=== PATIENT | male | born 1970 | race Caucasian/White ===

== ENCOUNTER 2020-12-03 15:54 | Outpatient (REF) | payer MEDICAID, SELFPAY ==
--- NOTE | ~2020-12-03 | XR_ITS ---
EXAMINATION: XR CHEST CLINICAL INFORMATION: Wheezing. Long smoking history. Rule out pulmonary nodule COMPARISON: None TECHNIQUE: 2 views of the chest were obtained. FINDINGS: Mild degenerative endplate changes of the thoracic spine. No significant abnormality is noted involving the heart, lungs, mediastinum, bony thorax or soft tissues. XR/XR chest 2V IMPRESSION: No acute abnormality identified. If the patient has a significant smoking history, he may benefit from lung cancer screening with low-dose chest CT.
== END 2020-12-03 15:55 | disposition home or self-care (01) ==
LOC: HO.HMGCX 15:54
PROVIDERS: PCP Internal Medicine; Visit Provider Internal Medicine
DX: R06.2 Wheezing (principal); F17.200 Nicotine dependence, unspecified, uncomplicated
CPT/HCPCS: 71046

== ENCOUNTER 2021-03-10 07:32 | Outpatient (REF) | payer MEDICAID, SELFPAY ==
--- NOTE | ~2021-03-10 | CT_ITS ---
EXAMINATION: CT CHEST SCREENING CLINICAL INFORMATION: Nicotine dependence. COMPARISON: None TECHNIQUE: Multidetector volumetric CT imaging of the chest was performed without contrast using low-dose technique. Additional 2D coronal and sagittal reformatted images and axial 3D maximum intensity projection (MIP) images are generated on the CT workstation. This CT examination was performed using dose optimization techniques as appropriate, variously including the following: *Automated exposure control *Adjustment of mA and/or kV according to patient size (this includes techniques or standardized protocols for targeted exams where dose is matched to indication/reason for exam; i.e. extremities or head) *Use of iterative reconstruction technique DLP: 69 mGy-cm FINDINGS: LUNGS: The lungs are well expanded and clear of acute pneumonic consolidation. There is a small, pleural-based 4 mm nodule in the right upper lobe (axial image 11/4), 4 mm nodule in the left upper lobe posterior segment (axial image 18/4), 4 mm nodule in the right lower lobe adjacent to the major fissure (axial image 43/4), 1 mm punctate calcification in the right lower lobe posterior basal segment (axial image 128/9). MEDIASTINUM: The central trachea and the bronchi are widely patent. The thyroid lobes are symmetrical and normal. Small shotty lymph nodes seen in the mediastinum with a short axis measurement of 6 mm and less. No pericardial effusion seen. PLEURA: There is no pleural effusion. No pleural mass or thickening. AXILLAE: There are small shotty axillary lymph nodes which appear benign. UPPER ABDOMEN: Visualized liver, spleen, pancreas and bilateral adrenal glands are unremarkable. OSSEOUS STRUCTURES: There is moderate ventral spondylosis in mid and lower dorsal spine. No lytic or sclerotic process seen. CT/CT lung screening IMPRESSION: Multiple small 4 mm pulmonary nodules and a 1 mm punctate calcification as described above. ASSESSMENT: Lung-RADS category 2: Benign RECOMMENDATION: Low-dose annual CT chest.
== END 2021-03-10 07:33 | disposition home or self-care (01) ==
LOC: HO.CT 07:32
PROVIDERS: Visit Provider Physician Assistant Medical
DX: Z12.2 Encounter for screening for malignant neoplasm of respiratory organs (principal); Z87.891 Personal history of nicotine dependence
CPT/HCPCS: 71271

== ENCOUNTER 2021-12-06 13:02 | Outpatient (REF) | payer MEDICAID, SELFPAY ==
[2021-12-06 13:55] LABS: MANUAL DIFF FLAG NO
[2021-12-06 14:03] LABS: Basophils Absolute Auto 0.1 X10*3/uL (0.0-0.2); Eosinophils Absolute Auto 0.9 X10*3/uL (0.0-0.4); Eosinophils Percent Auto 8.6 % (0-4); Hematocrit 46.7 % (42.0-52.0); Hemoglobin 15.3 g/dl (14.0-18.0); Imm Gran Abs Auto 0.08 X10*3/uL (0.00-0.03); Imm Gran Pct Auto 0.7 % (0.0-0.4); Lymphocytes Percent Auto 18.3 % (20-40); Mean Corpuscular HGB Conc 32.8 g/dl (31.0-36.0); Mean Corpuscular Hemoglobin 30.8 pg (27.0-33.0); Mean Corpuscular Volume 94.2 fL (80.0-98.0); Mean Platelet Volume 9.7 fL (9.4-12.4); Monocytes Absolute Auto 0.9 X10*3/uL (0.1-1.2); Monocytes Percent Auto 8.2 % (2-11); Neutrophils Absolute Auto 6.9 x10*3/uL (2.0-8.3); Neutrophils Percent Auto 63.2 % (45-73); Platelet Count 304 X10*3/uL (160-400); Red Blood Count 4.96 X10*6/uL (4.60-5.80); Red Cell Distribution Width 13.2 % (11.0-16.0); White Blood Count 10.9 X10*3/uL (4.8-10.8)
== END 2021-12-06 13:03 | disposition home or self-care (01) ==
LOC: HO.HMGCLDS 13:02
PROVIDERS: Visit Provider Internal Medicine
DX: D72.829 Elevated white blood cell count, unspecified (principal)
CPT/HCPCS: 36415; 85025

== ENCOUNTER 2022-05-18 12:01 | Day surgery (SDC) | payer MEDICAID, SELFPAY ==
[2022-05-12 14:43] VITALS: BMI 34.2
--- NOTE | 2022-05-17 11:41 | P.CONAN_ITS ---
Documented by User: Amber Levine NP 05/17/22 11:41 HPI - Anesthesia Eval Consult details Narrative: 51yo M for Colonoscopy [facility] Active Problems Active Problems: All Active Problems (Updated 01/15/21 @ 14:29 by Leonora Clemens PA-C) Personal history of nicotine dependence (Acute) Past Medical History Medical History (Updated 01/15/21 @ 14:29 by Leonora Clemens PA-C) Asthmatic bronchitis Personal history of nicotine dependence Surgical History Surgical History (Updated 05/12/22 @ 14:41 by Chery Melendrez RN) History of elbow surgery Social History Social History (Updated 01/15/21 @ 14:27 by Leonora Clemens PA-C) Patient Tobacco Use Status: Current everyday Tobacco user Tobacco use type: Cigarette Cigarette Packs Per Day: 1 Cigarettes Per Day: 20.0 Years Smoked: 35 (onset 15) Use of substances other than those prescribed or required for medical reasons: No Are you DNR?: No Advance Directives: No Advance Directives Information Provided: Yes Meds Allergies Allergy/AdvReac Type Severity Reaction Status Date / Time No Known Allergies Allergy Verified 05/12/22 14:45 [No Known Allergies*] Home Medications Medication Instructions Recorded Confirmed Last Taken Type albuterol sulfate 90 mcg/actuation 2 puff inhalation Q4-6H PRN 05/12/22 05/18/22 05/18/22 History aerosol inhaler (ProAir HFA) Wheezing Exam Exam Date and Time: May 17, 2022 1141 Height,Weight and Vital Signs: Height 5 ft 11 in Weight 111.13 kg Assessment and Plan Assessment Anesthesia Assessment: Chart Reviewed Documented by User: Ester Driscoll MD 05/18/22 13:11 [facility] Past Medical History Medical History (Updated 01/15/21 @ 14:29 by Leonora Clemens PA-C) Asthmatic bronchitis Personal history of nicotine dependence Family History Family history of problems with anesthesia: No Surgical History Surgical History (Updated 05/12/22 @ 14:41 by Chery Melendrez RN) History of elbow surgery History of Problems with Anesthesia: No Social History Social History (Updated 01/15/21 @ 14:27 by Leonora Clemens PA-C) Patient Tobacco Use Status: Current everyday Tobacco user Tobacco use type: Cigarette Cigarette Packs Per Day: 1 Cigarettes Per Day: 20.0 Years Smoked: 35 (onset 15) Use of substances other than those prescribed or required for medical reasons: No Are you DNR?: No Advance Directives: No Advance Directives Information Provided: Yes Meds Allergies Allergy/AdvReac Type Severity Reaction Status Date / Time No Known Allergies Allergy Verified 05/12/22 14:45 [No Known Allergies*] Home Medications Medication Instructions Recorded Confirmed Last Taken Type albuterol sulfate 90 mcg/actuation 2 puff inhalation Q4-6H PRN 05/12/22 05/18/22 05/18/22 History aerosol inhaler (ProAir HFA) Wheezing Exam Airway Mallampati Class: II TM Dist: >3cm Neck ROM: Full Heart: rrr Lungs: wheezes B/L ordered albuterol neb Assessment and Plan Assessment Anesthesia Assessment: Anesthesia Plan Discussed and Chart Reviewed Final Anesthetic Review Family History of Problems with Anesthesia: No History of Problems with Anesthesia: No NPO: Yes ASA Class: II Final Preanesthetic Review: No Changes in Pt Med Stat, Meds/Allgs Chart Reviewed and Consent Obtained/Reviewed Patient Risk: Intermediate Procedure Risk: Intermediate Anesthetic Plan Anesthetic Plan: MAC: Disposition: Standard PACU
[2022-05-18 12:44] VITALS: BMI 33.5
[2022-05-18 12:55] VITALS: BP 116/86; PULSE 69; RESP 16; TEMP 36.3; O2SAT 96
[2022-05-18] MEDS: Albuterol Sulfate (0.083%) 2.5 MG/3 ML VIAL.NEB INHALE (13:18)
[2022-05-18 13:20] VITALS: PULSE 66; RESP 16; O2SAT 96
[2022-05-18] MEDS: Lactated Ringers 1,000 ML 100 ML IVCONT (13:21)
--- NOTE | 2022-05-18 13:49 | MHC.SHP ---
Pre-Procedural Eval Section A Date of Service: 05/18/22 Section B Chief Complaint: screening Details of Present Illness: see H&P no changes Relevant Family History (Specify if Yes): No Relevant Social History: None Present Medications: None Medical History: No relevant PMH History of Previous Operations: No relevant previous surgery Allergies: Allergies Allergy/AdvReac Type Severity Reaction Status Date / Time No Known Allergies Allergy Verified 05/12/22 14:45 [No Known Allergies*] Review of Systems Sugical H&P ROS: Negative: Constitution, Cardiovascular, Respiratory, Neurological, Psychiatric, Hem-Onc, Allergic/Immunologic, Gastrointestinal, Genitourinary, Musculoskeletal, Integumentary, Endocrine and Eyes/Ears/Nose/Throat Exam Surgical H&P Exam: Normal: HEENT, Normal: Heart, Normal: Lungs, Normal: Extremities, Normal: Abdomen, Normal: Skin and Normal: Neurological Plan Diagnosis/Plan: Unchanged I have reviewed the history and physical and performed a pertinent physical examination on my patient. No changes have occurred unless specified.
--- NOTE | 2022-05-18 14:18 | PM.OP ---
Brief Operative Note Date of Service: 05/18/22 Pre-op diagnosis: screening Procedure: colonoscopy Surgeon: Sergey Mayes Anesthesia: MAC Was an Security Consultant used for this Procedure?: No Estimated blood loss (mL): 2 Pathology: other Condition: stable Disposition: PACU
[2022-05-18 14:22] VITALS: BP 96/62; PULSE 66; RESP 16; TEMP 36.2; O2SAT 92
[2022-05-18 14:45] VITALS: BP 116/83; PULSE 67; RESP 16; TEMP 36.8; O2SAT 95
--- NOTE | 2022-05-19 02:19 | OP_ITS ---
SURGEON: Sergey Mayes MD INDICATIONS: Colon cancer screening. PREOPERATIVE DIAGNOSIS: POSTOPERATIVE DIAGNOSIS: PROCEDURE PERFORMED: Colonoscopy to the terminal ileum with snare polypectomy. ESTIMATED BLOOD LOSS: COMPLICATIONS: ANESTHESIA: Medications; monitored anesthesia care. ASSISTANTS: SPECIMENS: DESCRIPTION OF PROCEDURE: History and physical performed. The risks and benefits of the procedure were explained to the patient. Informed consent was obtained. The patient was placed in the left lateral decubitus position. A digital rectal exam was performed and was found to be normal. The Olympus pediatric videocolonoscope was introduced into the rectum and advanced to the cecum without difficulty. The cecum was identified by transillumination, palpation, and identification of the ileocecal valve. Examination was performed. The scope was removed. He tolerated the procedure well and was taken to recovery room in stable condition. FINDINGS: The terminal ileum was examined and appeared normal. The visualized colonic mucosa was normal. In the right colon at about 90 cm from the anal verge, there was a less than 10 mm polyp, which was removed with a cold snare and recovered via suction. No other polyps were identified. There was some stool coating mucosa in the right colon limiting the examination. This was washed and suctioned. There was [id number] diverticulosis involving the sigmoid. Retroflexed examination showed small internal hemorrhoids. IMPRESSION: Colon polyp. RECOMMENDATION: Follow up with the biopsy results. MD JINA Bianchi/MAURA / [id number]
== END 2022-05-18 15:02 | disposition home or self-care (01) ==
PROVIDERS: PCP Internal Medicine; Visit Provider Internal Medicine Gastroenterology
PROC: 0DJD8ZZ Inspection of Lower Intestinal Tract, Via Natural or Artificial Opening Endoscopic (ICD-10-PCS; CPT 45378; principal; 2022-05-18 13:40)
DX: Z12.11 Encounter for screening for malignant neoplasm of colon (principal); D12.3 Benign neoplasm of transverse colon; K57.30 Diverticulosis of large intestine without perforation or abscess without bleeding; K64.8 Other hemorrhoids; J45.909 Unspecified asthma, uncomplicated; Z80.42 Family history of malignant neoplasm of prostate; F17.210 Nicotine dependence, cigarettes, uncomplicated; Z79.899 Other long term (current) drug therapy
CPT/HCPCS: 45385; 88305; 94640

== ENCOUNTER 2024-11-01 13:10 | Outpatient (REF) | payer OTHER, SELFPAY ==
--- NOTE | ~2024-11-01 | XR_ITS ---
EXAMINATION: XR CHEST 2 VIEWS HISTORY: COUGH COMPARISON: Comparison is made with the prior examination dated 12/03/2020. FINDINGS: PA and lateral views of the chest are submitted. The lungs are expanded and clear. There is no pleural effusion, pneumothorax, or pulmonary vascular congestion. The heart is normal in size. There is degenerative disc disease of the spine. XR/XR chest 2V IMPRESSION: No acute cardiopulmonary abnormality. Electronically signed by: Armen Joshua MD 11/01/2024 02:43 PM EST
--- OUTSIDE RECORDS SUMMARY | 2024-11-01 13:28 | XMS_ITS | Patient Health Record ---
Author Organization [facility] Address [address] [place] [address] Care Team Providers Care Supervisor Liquefaction Name Role Phone Darci MALONEY, [place] Primary Care Provider Sergey Hudson Jr Unavailable ALLERGIES No Known Allergies REASON FOR REFERRAL No Information MEDICATIONS Medication SIG (Take, Route, Frequency, Duration) Notes Start Date End Date Status ProAir HFA as needed Active MiraLax (colon prep) 17 GM/SCOOP mixed with Gatorade or Crystal Light Orally begin at 5:00 p.m. the day before the procedure for 1 day 04/13/2022 Active IMMUNIZATIONS Vaccine Route Administration Date Status Comme nts Influenza Unknown 11/01/2019 Refused Influenza Unknown 04/13/2022 Refused SOCIAL HISTORY Tobacco Use: Social History Observation Description Date Details (start date - stop date) Current Smoker NA - NA Sex Assigned At : Social History Observation Description Sex Assigned At Unknown Tobacco Use/Smoking Question Answer Notes Patient is a current smoker How often do you smoke cigarettes? every day How many cigarettes a day do you smoke? 11-20 Alcohol Screen Question Answer Notes Did you have a drink containing alcohol in the p ast year? No Points 0 Interpretation Negative PROBLEMS Problem Type ICD Code Onset Dates Problem Status W/U Status Risk SNOMED Code Notes Problem Colon cancer screening (Z12.11) Active confirmed [id number] PLAN OF TREATMENT Future Test Test Name Order Date COLONOSCOPY 11/01/2019 COLONOSCOPY 04/13/2022 Insurance Providers Payer Name Payer Address Payer Phone Subscriber Number Group Number Insured Name Patient Relationship to Insured Coverage Start Date Coverage End Date [facility] [address] [place] [phone] [id number] MARQUIS SUERO Self - patient is the insured MEDICAL (GENERAL) HISTORY Medical History History ICD Code asthmatic bronchitis Surgical History Surgery Date(Month/Year) broken arm left two screw in elbow age [age]
== END 2024-11-01 13:11 | disposition home or self-care (01) ==
LOC: HO.HMGCX 13:10
PROVIDERS: PCP Internal Medicine; Visit Provider Internal Medicine
DX: R05.9 Cough, unspecified (principal)
CPT/HCPCS: 71046

== ENCOUNTER → 2024-11-01 13:18 | Outpatient (BNV) | payer OTHER, SELFPAY | PROVIDERS: PCP Internal Medicine; Visit Provider Radiology Diagnostic Radiology | DX: R05.9 Cough, unspecified (principal) | CPT/HCPCS: 71046 ==

== ENCOUNTER 2025-06-06 14:27 | Outpatient (AMB) | payer OTHER, SELFPAY ==
--- NOTE | 2025-06-06 14:23 | A.OFFPC_ITS ---
Vital Signs 06/06/25 14:31 Height 5 ft 10.12 in Weight 261 lb BMI 37.3 Respiration 16 Pulse 67 Pulse Source Pulse Oximeter Temp 97.8 F Temp Source Temporal Artery Scan Pulse Oximetry (%) 98 Oxygen Delivery Method Room Air Intake Visit Reasons: establish care Accompanied by: Self / Same As Patient Allergies No Known Allergies (No Known Allergies*) Allergy (Verified 06/06/25 15:01) Medication List - Last Reconciled 06/06/25 by Belen Velasco PA-C albuterol sulfate 90 mcg/actuation (ProAir HFA) 2 puffs inhalation Q4-6H PRN budesonide-formoterol 80-4.5 mcg/actuation (Symbicort) inhalation omeprazole 20 mg PO DAILY tadalafil (Cialis) 5 mg PO DAILY triamcinolone acetonide 0.1% appl topical BID Tobacco use date assessed: 06/06/25 Dental Screening Dental Screen Date: 06/06/25 Did you have a dental visit in the last 12 months?: No HPI establish care HPI Details The patient is a 54-year-old male presenting for a new patient appointment and management of chronic conditions. The patient has a history of asthmatic bronchitis, for which he uses albuterol and Symbicort. He was a smoker for approximately 30 years, smoking a pack a day, but quit two years ago. He has undergone lung cancer screening, which was normal, and is advised to continue with periodic screenings. The patient reports erectile dysfunction and is currently on sildenafil, but is considering switching to tadalafil for daily use. He has no known cardiovascular issues, and his blood pressure was recorded at 135/71 mmHg during the visit. 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 He has gained 45 pounds since quitting smoking and does not engage in regular physical activity. The numbness is intermittent and sometimes accompanied by tightness, but he denies any back pain or swelling in the legs. He has a history of gastroesophageal reflux disease (GERD) and is on omeprazole 20 mg daily. 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 - Substance Use: Former smoker, quit two years ago after smoking a pack a day for 30 years. - Exercise: Does not engage in regular p hysical activity. - Weight Management: Gained 45 pounds si nce quitting smoking. [facility] Medical History (Updated 06/06/25 @ 16:27 by Belen Velasco PA-C) GERD (gastroesophageal reflux disease) Hypertension Paresthesias Pulmonary nodule Erectile dysfunction Personal history of nicotine dependence Asthmatic bronchitis Surgical History History of elbow surgery Family History Mother Breast CA Father Prostate CA Social History Housing: House Patient Tobacco Use Status: Former Tobacco user Tobacco use type: Cigarette Cigarette Packs Per Day: 1 Cigarettes Per Day: 20.0 Years Smoked: 35 (onset 15) service: No Current occupational status: employed Cognitive needs: No Hearing needs: No Vision needs: No Questionnaire PHQ-9 Over the last 2 weeks, how often have you been bothered by any of the following problems? 1. Little interest or pleasure in doing things: not at all 2. Feeling down, depressed, or hopeless: not at all 3. Trouble falling or staying asleep, or sleeping too much: not at all 4. Feeling tired or having little energy: not at all 5. Poor appetite or overeating: not at all 6. Feeling bad about yourself - or that you are a failure or have let yourself or your family down: not at all 7. Trouble concentrating on things, such as reading the newspaper or watching television: not at all 8. Moving or speaking so slowly that other people could have noticed. Or the opposite - being so fidgety or restless that you have been moving around a lot more than usual: not at all 9. Thoughts that you would be better off or of hurting yourself in some way: not at all Total score: 0 Depression Screening Interpretation: Negative Depression Screening Done: Yes 57441 - PHQ-9 Billing: Yes Source: Developed by Drs. Armen Peguero, Mirella Leonard, Bryant Del Castillo and colleagues, with an educational faith from [employer]. Thrive Questionnaire Date Thrive assessed: 06/06/25 I am a: Patient What is your living situation today?: I have a steady place to live Within the past 12 months, did the food you bought not last and you didn't have the money to get more?: Never true Within the past 12 months, did you worry whether your food would run out before you got money to buy more?: Never true Do you have trouble paying for medicines?: No Do you have trouble getting transportation to medical appointments?: No Do you have trouble paying your heating and electricity bill?: No Do you have trouble taking care of your child, family member or friend?: No Do you have trouble with day-to-day activities such as bathing, preparing meals, shopping, managing finances, etc.?: No Are you currently unemployed and looking for a job?: No Are you interested in more education?: No THRIVE Score: 0 AUDIT C Alcohol Use Questionnaire (AUDIT-C) 1. How often do you have a drink containing alcohol?: Never Total Score: 0 Score Reviewed/Action Taken: No AURE-7 AMB Questionnaire AURE-7 Date AURE - 7 assessed: 06/06/25 Feeling nervous, anxious, or on edge: 0 = Not at all Not being able to stop or control worryin = Not at all Worrying too much about different things: 0 = Not at all Trouble relaxin = Not at all Being so restless that it is hard to sit still: 0 = Not at all Becoming easily annoyed or irritable: 0 = Not at all Feeling afraid as if something awful might happen: 0 = Not at all Total AURE-7 score (0-4 normal; 5-9 mild; 10-14 moderate; 15-21 severe): 0 Source: Developed by Drs. Armen Peguero, Mierlla Leonard, Bryant Del Castillo and colleagues, with an educational faith from [employer]. AURE-7 Assessment Billing AURE-7 Assessment Tool: AURE-7 Assessment 02405 Review of Systems Const Details: - Respiratory: Reports history of asthmatic bronchitis. Denies current dyspnea or wheezing. - Cardiovascular: Denies chest pain or palpitations. - Neurological: Reports intermittent numbness in upper legs. Denies headaches or dizziness. - Gastrointestinal: Reports gastroesophageal reflux disease. Denies abdominal pain or changes in bowel habits. All systems reviewed & are unremarkable except as noted in HPI and below Physical exam (Primary Care) Vital Signs: Last Vital Signs Temp 97.8 F 06/06/25 14:31 Pulse 67 06/06/25 14:31 Resp 16 06/06/25 14:31 Pulse Ox 98 06/06/25 14:31 Oxygen Delivery Method Room Air 06/06/25 14:31 Care Plan Goal for BP management: <140/90 at Goal BMI result Body Mass Index 37.3 BMI Assessment/Plan discussion: High BMI High, discussed plan: lifestyle, weight reduction, dietary, physical activity, alcohol moderation and other Tobacco/Smoking Status: Tobacco use Status Tobacco use date assessed 06/06/25 06/06/25 14:41 Patient Tobacco Use Status Former Tobacco user 06/06/25 14:41 Tobacco use type Cigarette 06/06/25 14:25 PHQ-9: PHQ-9 Score PHQ-9: Total score 0 06/06/25 15:45 Depression Screening Interpretation: Negative Thrive Assessment: Date of Thrive Assessment Date Thrive assessed 06/06/25 06/06/25 14:41 Const Other: Appearance: Alert. Oriented X3. No acute distress. Head: Normal external exam. Normocephalic. Atraumatic. Eyes: Pupils are equal, round, and reactive to light. Extraocular movements intact. Conjunctiva and sclera normal. Eyelids normal. Ears: External auditory canal normal. Tympanic membranes normal. Throat: Pharynx normal. Uvula midline. Moist mucous membranes. Neck: Normal inspection. Neck supple. Full range of motion. Cardiovascular: Normal heart rate and rhythm. Heart sound normal. No murmurs noted. Pulses normal throughout. Blood pressure was 135/71. Pulse was 60. Respiratory: No respiratory distress. Painless inspiration. Breath sounds normal. No wheezes/rales/rhonchi noted. Chest nontender. No accessory muscle usage noted or decreased air movement noted. Back: Full range of motion noted. Skin: Skin warm and dry. Normal skin color. Normal skin turgor. No rashes/lesions/lacerations noted. Extremities: No lower extremity edema. Extremities exhibit normal range of motion. Extremities nontender. Reports occasional numbness in upper legs, especially from knees up, possibly related to prolonged sitting. Neuro: Oriented X 3. No motor deficit. No sensory deficit. Reflexes normal. Reports occasional numbness and tightness in upper legs. Results AMB Hemoglobin A1c AMB Hemoglobin A1c 6.0 % Last Edit by BEL Szymanski on 06/06/25 15:28 Results Reviewed Results Reviewed: Laboratory Last Values Hgb A1c (Clinic) 6.0 % (4.0-6.0) 06/06/25 15:26 - Imaging: Lung cancer screening was normal. Coding Level of Care Code New Pt Level 4 (29703) Complex EM visit Add On G2211 Diagnoses Asthmatic bronchitis J45.909 Pulmonary nodule R91.1 Erectile dysfunction N52.9 Paresthesias R20.2 Hypertension I10 GERD (gastroesophageal reflux disease) K21.9 Additional Codes AURE-7 Assessment Billing - AURE-7 Assessment Tool: AURE-7 Assessment 45405 ([id number]) PHQ-9 - 75244 - PHQ-9 Billing: Yes ([id number]) Time Spent (min) 50 Assessment & Plan Assessment & Plan (1) Asthmatic bronchitis: Comment: (uses albuterol inhaler daily) Code(s): J45.909 - Unspecified asthma, uncomplicated Category: Medical Plan: The patient will continue using albuterol and Symbicort for management of asthmatic bronchitis. Smoking cessation has been achieved, and periodic lung cancer screenings are advised. (2) Pulmonary nodule: Code(s): R91.1 - Solitary pulmonary nodule Category: Medical Plan: The patient has four pulmonary nodules and will be referred for further evaluation and management. (3) Erectile dysfunction: Code(s): N52.9 - Male erectile dysfunction, unspecified Category: Medical Plan: The patient is considering switching from sildenafil to tadalafil for daily use, with a prescription for 5 mg daily. (4) Paresthesias: Code(s): R20.2 - Paresthesia of skin Category: Medical Plan: The patient reports numbness in the upper legs, likely due to prolonged sitting. Blood work including magnesium, B12, and folate levels will be conducted to rule out deficiencies. A referral to neurology will be considered if symptoms persist. (5) Hypertension: Code(s): I10 - Essential (primary) hypertension Category: Medical Plan: The patient's blood pressure was recorded at 135/71 mmHg, and no immediate changes to management were discussed. (6) GERD (gastroesophageal reflux disease): Code(s): K21.9 - Gastro-esophageal reflux disease without esophagitis Category: Medical Plan: The patient is currently managing GERD with omeprazole 20 mg daily. Plan Plan Patient was informed and verbally consented to the use of an ambient scribe for clinic note documentation during this visit. 1. Asthmatic Bronchitis The patient will continue using albuterol and Symbicort for management of asthmatic bronchitis. Smoking cessation has been achieved, and periodic lung cancer screenings are advised. 2. Pulmonary Nodules The patient has four pulmonary nodules and will be referred for further e valuation and management. 3. Erectile Dysfunction The patient is considering switching from sildenafil to tadalafil for daily use, with a prescription for 5 mg daily. 4. Numbness In Upper Legs The patient reports numbness in the upper legs, likely due to prolonged sitting. Blood work including magnesium, B12, and folate levels will be conducted to rule out deficiencies. A referral to neurology will be considered if symptoms persist. 5. Hypertension The patient's blood pressure was recorded at 135/71 mmHg, and no immediate changes to management were discussed. 6. Gastroesophageal Reflux Disease (Gerd) The patient is currently managing GERD with omeprazole 20 mg daily. During the visit, we discussed the management of asthmatic bronchitis with continued use of albuterol and Symbicort, and the importance of periodic lung cancer screenings due to the patient's smoking history. We also reviewed the patient's erectile dysfunction treatment options, including a switch to tadalafil for daily use, and addressed the numbness in his upper legs, recommending blood work and a potential neurology referral if symptoms persist. Orders: Orders C Reactive Protein Today Z00.00 - Encounter for general adult medical examination without abnormal findings Comprehensive [place]. Panel Fast Today Z00.00 - Encounter for general adult medical examination without abnormal findings Magnesium Today Z00.00 - Encounter for general adult medical examination without abnormal findings Liver Panel Today Z00.00 - Encounter for general adult medical examination without abnormal findings Vitamin B12 and Folate Today Z00.00 - Encounter for general adult medical examination without abnormal findings Vitamin D 25-OH Total Today Z00.00 - Encounter for general adult medical examination without abnormal findings UA CC w/rflx Micro + Cult Today Z00.00 - Encounter for general adult medical examination without abnormal findings Testosterone, Free/Total Today Z00.00 - Encounter for general adult medical examination without abnormal findings Complete Blood Count Auto Diff Today Z00.00 - Encounter for general adult medical examination without abnormal findings TSH reflex Free T4 Today Z00.00 - Encounter for general adult medical examination without abnormal findings PSA,Total (Free>4and<10) Today Z00.00 - Encounter for general adult medical examination without abnormal findings DHEA Sulfate Today Z00.00 - Encounter for general adult medical examination without abnormal findings Dihydrotestosterone Today Z00.00 - Encounter for general adult medical examination without abnormal findings AMB Hemoglobin A1c Today Z13.9 - Encounter for screening, unspecified Referrals Lung Cancer Screening Referral Z87.891 - Personal history of nicotine dependence Medications: New tadalafil (Cialis) 5 mg PO DAILY 30 tabs 0RF erectile dysfunction N52.9 - Male erectile dysfunction, unspecified triamcinolone acetonide 0.1% 1 appl topical BID 454 grams 3RF Patient Instructions: - Continue using albuterol and Symbicort as prescribed for asthmatic bronchitis. - Schedule periodic lung cancer screenings as advised. - Consider switching to tadalafil for erectile dysfunction management, as discussed. - Monitor for any changes in numbness or tightness in the legs and report if symptoms worsen. - Follow up with blood work as ordered to check for deficiencies. - Maintain a healthy diet and consider increasing physical activity to manage weight gain.
[2025-06-06 14:31] VITALS: PULSE 67; RESP 16; TEMP 36.6; O2SAT 98; BMI 37.3
== END 2025-06-06 15:27 | disposition home or self-care (01) ==
LOC: HO.HMCSH 14:27
PROVIDERS: PCP Internal Medicine; Visit Provider Physician Assistant Medical
DX: J45.909 Unspecified asthma, uncomplicated (principal); R91.1 Solitary pulmonary nodule; N52.9 Male erectile dysfunction, unspecified; R20.2 Paresthesia of skin; I10 Essential (primary) hypertension; K21.9 Gastro-esophageal reflux disease without esophagitis; Z13.9 Encounter for screening, unspecified

== ENCOUNTER → 2025-06-06 14:27 | Outpatient (BNVA) | payer OTHER, SELFPAY | PROVIDERS: PCP Internal Medicine; Visit Provider Physician Assistant Medical | DX: I10 Essential (primary) hypertension (principal); J45.909 Unspecified asthma, uncomplicated; N52.9 Male erectile dysfunction, unspecified; R20.0 Anesthesia of skin; K21.9 Gastro-esophageal reflux disease without esophagitis; R91.1 Solitary pulmonary nodule; R20.2 Paresthesia of skin; Z87.891 Personal history of nicotine dependence; Z79.899 Other long term (current) drug therapy | CPT/HCPCS: 83036; 96127 ==

== ENCOUNTER 2025-07-23 06:37 | Outpatient (REF) | payer OTHER, SELFPAY ==
--- OUTSIDE RECORDS SUMMARY | 2025-07-23 06:41 | XMS_ITS | Patient Health Record ---
Author Organization [facility] Address [address] [place] [address] Care Team Providers Care Demurrage Agent Name Role Phone Darci (RETIRED) Chester MALONEY Primary Care Provider Unavailable Sergey Mayes Jr Unavailable Allergies No Known Allergies Reason For Referral No Information Medications Medication SIG (Take, Route, Frequency, Duration) Notes Start Date End Date Status ProAir HFA as needed Active MiraLax (colon prep) 17 GM/SCOOP mixed with Gatorade or Crystal Light Orally begin at 5:00 p.m. the day before the procedure; Duration: 1 day 04/13/2022 Active Immunizations Vaccine Route Administration Date Status Comme nts Influenza Unknown 11/01/2019 Refused Influenza Unknown 04/13/2022 Refused Social History Tobacco Use: Social History Observation Description Date Details (start date - stop date) Current Smoker NA - NA Tobacco Use/Smoking Question Answer Notes Patient is a current smoker How often do you smoke cigarettes? every day How many cigarettes a day do you smoke? 11-20 Alcohol Screen Question Answer Notes Did you have a drink containing alcohol in the p ast year? No Points 0 Interpretation Negative Problems Problem Type SNOMED Code ICD Code Onset Dates Problem Status W/U Status Risk Notes Problem Colon cancer screening (167197470) Colon cancer screening (Z12.11) Active confirmed Plan Of Treatment Future Test Test Name Order Date COLONOSCOPY 11/01/2019 COLONOSCOPY 04/13/2022 Insurance Providers Payer Name Payer Address Payer Phone Subscriber Number Group Number Insured Name Patient Relationship to Insured Coverage Start Date Coverage End Date MEDICA[employer] OF [facility] [address] [place] [phone] [id number] MARQUIS SUERO Self - patient is the insured Medical (General) History Medical History History ICD Code asthmatic bronchitis Surgical History Surgery Date(Month/Year) broken arm left two screw in elbow age [age]
[2025-07-23 10:17] LABS: Appearance Urine Clear; Glucose Urine UA Negative (Negative); PH 6.5 (5.0-9.0); Specific Gravity - Urine 1.025 (1.005-1.025)
[2025-07-23 10:31] LABS: MANUAL DIFF FLAG NO
[2025-07-23 10:56] LABS: Hematocrit 45.4 % (42.0-52.0); Hemoglobin 14.4 g/dl (14.0-18.0); Imm Gran Abs Auto 0.04 X10*3/uL (0.00-0.03); Imm Gran Pct Auto 0.5 % (0.0-0.4); Lymphocytes Absolute Auto 1.2 X10*3/uL (1.2-4.9); Mean Corpuscular HGB Conc 31.7 g/dl (31.0-36.0); Mean Corpuscular Hemoglobin 29.8 pg (27.0-33.0); Mean Corpuscular Volume 94.0 fL (80.0-98.0); NRBC Abs Auto 0.000 X10*3/uL (0.0-0.012); NRBC Pct Auto 0.0 /100WBC (0.0-0.2); Platelet Count 250 X10*3/uL (160-400); Red Blood Count 4.83 X10*6/uL (4.60-5.80); White Blood Count 8.2 X10*3/uL (4.8-10.8)
[2025-07-23 11:08] LABS: Alanine Aminotransferase 27 U/L (0-40); Albumin Level 3.9 g/dL (3.5-5.0); Alkaline Phosphatase 78 U/L (39-117); Anion Gap 7 (12-20); Aspartate Amino Transferase 24 U/L (5-37); Blood Urea Nitrogen 23 mg/dL (9-16); Calcium 8.3 mg/dL (8.4-10.2); Carbon Dioxide 25 mmol/L (22-29); Chloride 113 mmol/L (96-108); Estimated Glomerular Filt Rate > 60; Magnesium 2.0 mg/dL (1.6-2.6); Potassium 4.3 mmol/L (3.3-5.1); Sodium 141 mmol/L (135-145); Total Protein 6.7 g/dL (6.5-8.0)
[2025-07-23 11:26] LABS: PSA,Total (Free>4and<10) 0.53 ng/mL (0.00-4.00)
[2025-07-23 11:41] LABS: Folate 6.4 ng/mL (> or = 4.0); Vitamin B12 444 pg/mL (200-900)
[2025-07-29 13:43] LABS: Testosterone, Free 27.5 pg/mL (35.0-155.0)
== END 2025-07-23 06:38 | disposition home or self-care (01) ==
LOC: HO.HMGCLDS 06:37
PROVIDERS: PCP Physician Assistant Medical; Visit Provider Physician Assistant Medical
DX: Z00.00 Encounter for general adult medical examination without abnormal findings (principal); Z12.5 Encounter for screening for malignant neoplasm of prostate; Z13.29 Encounter for screening for other suspected endocrine disorder
CPT/HCPCS: 36415; 80053; 80076; 81003; 82248; 82306; 82607; 82627; 82642; 82746; 83735; 84153; 84402; 84403; 84443; 85025; 86140

== ENCOUNTER 2025-08-19 15:54 | Outpatient (REF) | payer OTHER, SELFPAY ==
--- NOTE | ~2025-08-19 | CT_ITS ---
EXAMINATION: CT LUNG SCREENING HISTORY: F17.210 - Nicotine dependence, cigarettes, uncomplicated TECHNIQUE: Low dose axial images were obtained from the sternal notch to upper abdomen without IV contrast per standard departmental protocol. Sagittal and coronal reformatted images were also obtained and reviewed. One or more of the following techniques was used for dose reduction: Automated exposure control, adjustment of the mA and/or kV according to patient size, use of iterative reconstruction technique. DLP: 77 mGy-cm COMPARISON: Comparison is made with the prior examination dated 03/10/2021. FINDINGS: Lung nodules: Again seen is a 3 mm subpleural nodule in the right upper lobe (series 8, image 31). A 3 mm nodule along the right major fissure (series 8, image 98) is consistent with an intrapulmonary lymph node. No suspicious pulmonary nodules are identified. Emphysema: mild Coronary Calcification: none Aortic Arch Calcification: none Potentially Significant Incidentals : none Additional Chest Findings: There is no pleural or pericardial effusion. No mediastinal or axillary lymphadenopathy is identified. Visualized upper abdomen: There is a probable 1.3 cm cyst in the left lobe of the liver. The visualized portions of the spleen and adrenals have an unremarkable unenhanced appearance. CT/CT lung screening IMPRESSION: No suspicious pulmonary nodules are identified. LUNG-RADS ASSESSMENT: Lung-RADS 2: Benign MANAGEMENT: Continue annual screening with LDCT in 12 months Category S: N/A Electronically signed by: Armen Joshua MD 08/20/2025 07:28 AM [facility] [place]
== END 2025-08-19 15:55 | disposition home or self-care (01) ==
LOC: HO.CT 15:54
PROVIDERS: Visit Provider Physician Assistant Medical
DX: F17.210 Nicotine dependence, cigarettes, uncomplicated (principal)
CPT/HCPCS: 71271

== ENCOUNTER → 2025-08-19 15:55 | Outpatient (BNV) | payer OTHER, SELFPAY | PROVIDERS: Visit Provider Radiology Diagnostic Radiology | DX: Z12.2 Encounter for screening for malignant neoplasm of respiratory organs (principal); Z87.891 Personal history of nicotine dependence | CPT/HCPCS: 71271 ==